=== PATIENT | male | born 1995 | race Caucasian/White ===

== ENCOUNTER 2018-10-12 15:13 | Emergency (ER) | payer MEDICAID, SELFPAY ==
[2018-10-12 15:16] VITALS: BP 136/81; PULSE 80; RESP 16; TEMP 36.9; O2SAT 99
--- NOTE | 2018-10-12 15:40 | W.ED.GENAD ---
Discharge Plan Disposition Patient Disposition: HOME Condition: Improving Discharge Details Chief Complaint: RespSymp Clinical Impression: Acute pharyngitis Primary Care Provider: Elizabeth Moore ED Provider: Andi Lopez Home Meds and New Rx's Prescriptions: No Action ondansetron 4 MG tablet,disintegrating 4 mg PO Q6H PRN PRNQty: 7 RF: 0 Discharge Instructions Instructions: Pharyngitis (ED) Additional Instructions: You will have an additional strep culture performed. Home to rest today. Small, frequent sips of fluids and/or popsicles to maintain hydration. Tylenol 650-975 mg every 6 hours, and/or ibuprofen 800 mg every 8 hours as needed for aches, pains, fever. The dexamethasone will continue to work over approximately 36 hours time. Return to the emergency department for any acute concerns Medical Decision Making 23-year-old male presents from home with days of sore throat, bilateral ear was seen with some chills chills and myalgias. He is taking liquids and solids by mouth. No recent travel. He has not had any other significant findings. Differential diagnosis includes viral versus bacterial pharyngitis. Cannot exclude an underlying generalized viral syndrome. Rapid strep screening was negative. Given the patient's obvious inflammation of the tonsillar pillars, he was given a single dose of dexamethasone for its anti-inflammatory properties. He stable and appropriate for outpatient management. I discussed with him return precautions to the ER prior to discharge. HPI General Mode of arrival: ambulatory. Date/Time Provider Initiated Documentation: 10/12/18 15:19. Limitations to Documentation: no limitations. Information obtained by: patient. History of Present Illness 23 year old M presents to the emergency department with the chief complaint of Sore throat, subjective fever and chills, body ache over 5days, described as moderate, Quality is described as aching, and is localized to the neck. Patient reports no radiation. Patient started experiencing this day(s) and it has been constant. Eating worsens symptoms . Patient notes fever/chills. Patient did receive the following treatments prior to arrival, none Related Data Home Medications Medication Instructions Recorded Confirmed ondansetron 4 mg PO Q6H PRN PRN #7 tabef 11/02/16 Previous Rx's Medication Instructions Recorded ondansetron 4 mg PO Q6H PRN PRN #7 tabef 11/02/16 Allergies Allergy/AdvReac Type Severity Reaction Status Date / Time No Known Allergies Allergy Unverified 11/02/16 11:02 General Stated Complaint: RespSymp VICK: 4 Review of Systems Review of Systems 6 systems reviewed and otherwise negative [facility] Medical History Counseling on substance use and abuse Family History Mother No problems noted. Father No problems noted. Social History Smoking/Tobacco Use Status: Never Exam Narrative Exam Narrative: GEN: awake, alert, oriented 3. Pleasant, well groomed, interactive. HEAD: Normocephalic, atraumatic ENT: Mucous membranes moist, oropharynx with erythematous tonsillar pillars, no exudate, no asymmetry, External ear exam unremarkable, tympanic membranes gonzalez bilaterally EYES: PERRL, EOMI NECK: Full ROM, no NADIYA, no menigismus CHEST/RESP: Nontender, clear to auscultation bilateral, no wheeze/rhonchi/rales CARDIOVASCULAR: RRR, no murmur, rub mariya. 2+ Rad pulse bilateral ABDOMEN: Soft, nontender, no mass. +Bowel sounds EXT: Full ROM, no edema, no rash Neuro: Grossly normal neurologic exam, conversant, interactive. Psych: Speech fluent, thoughts congruent, affect normal Course Vital Signs Temperature 36.9 C 10/12/18 15:16 Pulse 80 10/12/18 15:16 Respiratory Rate 16 10/12/18 15:16 Blood Pressure 136/81 10/12/18 15:16 Pulse Oximetry 99 10/12/18 15:16 Temperature 36.9 C 10/12/18 15:16 Temperature Source Skin 10/12/18 15:16 Pulse 80 10/12/18 15:16 Respiratory Rate 16 10/12/18 15:16 Respiratory Effort Non-Labored 10/12/18 15:22 Respiratory Depth Normal 10/12/18 15:22 Blood Pressure 136/81 10/12/18 15:16 Blood Pressure Position Sitting 10/12/18 15:16 Pulse Oximetry 99 10/12/18 15:16 Oxygen Delivery Method Room Air 10/12/18 15:16 Oxygen Flow Rate 0 10/12/18 15:16 Pain Level 6 10/12/18 15:16
--- NOTE | 2018-10-12 15:43 | ED.GENADUL_ITS ---
Discharge Plan Disposition Patient Disposition: HOME Condition: Improving Discharge Details Chief Complaint: RespSymp Clinical Impression: Acute pharyngitis Primary Care Provider: Elizabeth Moore ED Provider: Andi Lopez Home Meds and New Rx's Prescriptions: No Action ondansetron 4 MG tablet,disintegrating 4 mg PO Q6H PRN PRNQty: 7 RF: 0 Discharge Instructions Instructions: Pharyngitis (ED) Additional Instructions: You will have an additional strep culture performed. Home to rest today. Small, frequent sips of fluids and/or popsicles to maintain hydration. Tylenol 650-975 mg every 6 hours, and/or ibuprofen 800 mg every 8 hours as needed for aches, pains, fever. The dexamethasone will continue to work over approximately 36 hours time. Return to the emergency department for any acute concerns Medical Decision Making 23-year-old male presents from home with days of sore throat, bilateral ear was seen with some chills chills and myalgias. He is taking liquids and solids by mouth. No recent travel. He has not had any other significant findings. Differential diagnosis includes viral versus bacterial pharyngitis. Cannot exclude an underlying generalized viral syndrome. Rapid strep screening was negative. Given the patient's obvious inflammation of the tonsillar pillars, he was given a single dose of dexamethasone for its anti-inflammatory properties. He stable and appropriate for outpatient management. I discussed with him return precautions to the ER prior to discharge. HPI General Mode of arrival: ambulatory . Date/Time Provider Initiated Documentation: 10/12/18 15:19 . Limitations to Documentation: no limitations . Information obtained by: patient . History of Present Illness 23 year old M presents to the emergency department with the chief complaint of Sore throat, subjective fever and chills, body ache over 5days, described as moderate, Quality is described as aching, and is localized to the neck. Patient reports no radiation. Patient started experiencing this day(s) and it has been constant. Eating worsens symptoms . Patient notes fever/chills. Patient did receive the following treatments prior to arrival, none Related Data Home Medications Medication Instructions Recorded Confirmed ondansetron 4 mg PO Q6H PRN PRN #7 tabef 11/02/16 Previous Rx's Medication Instructions Recorded ondansetron 4 mg PO Q6H PRN PRN #7 tabef 11/02/16 Allergies Allergy/AdvReac Type Severity Reaction Status Date / Time No Known Allergies Allergy Unverified 11/02/16 11:02 General Stated Complaint: RespSymp VICK: 4 Review of Systems Review of Systems 6 systems reviewed and otherwise negative [facility] Medical History Counseling on substance use and abuse Family History Mother No problems noted. Father No problems noted. Social History Smoking/Tobacco Use Status: Never Exam Narrative Exam Narrative: GEN: awake, alert, oriented 3. Pleasant, well groomed, interactive. HEAD: Normocephalic, atraumatic ENT: Mucous membranes moist, oropharynx with erythematous tonsillar pillars, no exudate, no asymmetry, External ear exam unremarkable, tympanic membranes gonzalez bilaterally EYES: PERRL, EOMI NECK: Full ROM, no NADIYA, no menigismus CHEST/RESP: Nontender, clear to auscultation bilateral, no wheeze/rhonchi/rales CARDIOVASCULAR: RRR, no murmur, rub mariya. 2+ Rad pulse bilateral ABDOMEN: Soft, nontender, no mass. +Bowel sounds EXT: Full ROM, no edema, no rash Neuro: Grossly normal neurologic exam, conversant, interactive. Psych: Speech fluent, thoughts congruent, affect normal Course Vital Signs Temperature 36.9 C 10/12/18 15:16 Pulse 80 10/12/18 15:16 Respiratory Rate 16 10/12/18 15:16 Blood Pressure 136/81 10/12/18 15:16 Pulse Oximetry 99 10/12/18 15:16 Temperature 36.9 C 10/12/18 15:16 Temperature Source Skin 10/12/18 15:16 Pulse 80 10/12/18 15:16 Respiratory Rate 16 10/12/18 15:16 Respiratory Effort Non-Labored 10/12/18 15:22 Respiratory Depth Normal 10/12/18 15:22 Blood Pressure 136/81 10/12/18 15:16 Blood Pressure Position Sitting 10/12/18 15:16 Pulse Oximetry 99 10/12/18 15:16 Oxygen Delivery Method Room Air 10/12/18 15:16 Oxygen Flow Rate 0 10/12/18 15:16 Pain Level 6 10/12/18 15:16
[2018-10-12] MEDS: Dexamethasone 4 MG TAB 10 MG PO (15:47)
[2018-10-12 15:50] VITALS: BP 136/81; PULSE 80; RESP 16; TEMP 36.9; O2SAT 99
== END 2018-10-12 16:05 | disposition home or self-care (01) ==
PROVIDERS: Emergency Provider Emergency Medicine; PCP Pediatrics
DX: J02.9 Acute pharyngitis, unspecified (principal)
CPT/HCPCS: 87880; 99283; 87081; J8540

== ENCOUNTER 2018-11-04 23:12 | Emergency (ER) | payer MEDICAID, SELFPAY ==
--- NOTE | 2018-11-04 23:15 | W.ED.GENAD ---
Discharge Plan Disposition Patient Disposition: HOME Condition: Stable Discharge Details Chief Complaint: RespSymp Clinical Impression: Influenza Primary Care Provider: Elizabeth Moore ED Provider: Carlitos Moon Home Meds and New Rx's Prescriptions: New oseltamivir 75 mg capsule 75 mg PO BID 5 Days Qty: 10 RF: 0 ondansetron 4 mg tablet,disintegrating 4 mg PO TID PRN (Reason: nausea and vomiting) 5 Days Qty: 30 RF: 0 Discharge Instructions Instructions: Influenza (ED) Additional Instructions: drink fluids to stay hydrated you can take 1000mg tylenol and 600mg ibuprofen every 6 hours for pain/fever as needed if you are still symptomatic next week see your primary care provider return to the emergency department for difficulty breathing, persistent vomit, severe headaches or if you feel significantly more ill Medical Decision Making 23 yo male who denies chronic medical problems comes in with 2 days of fevers, myalgias, dry cough, sore throat. Denies ivdu, recent travel, rashes. FAmily reports he almost had a syncope earlier when walking to the bathroom but he dneeis this, denies chest pain or sob. HAs clear lungs on exam with no focal deficits, no pain over the hyoid, no restricted neck movements, no wheezing, stridor or drooling. I suspect the patient has influenza and given likelihood is high will initiate tx and defer testing. Will obtain xray to eval for inflitrate xray negative on my read. He remains stable, will d/c on tamiflu and advised f/u with pcp and return precautions given Differential Diagnosis influenza, uri, cap Imaging Data Radiologic Study: Attestation: I personally reviewed and interpreted this imaging study as follows: Imaging: X-Ray My impression: no acute findings HPI General Mode of arrival: ambulatory. Date/Time Provider Initiated Documentation: 11/04/18 23:15. Limitations to Documentation: no limitations. Information obtained by: patient. History of Present Illness 23 year old M presents to the emergency department with the chief complaint of fevers, cough, described as moderate, with intensity rated at 5. Patient reports no radiation. and it has been constant. No relieving factors improve symptom(s), No exacerbating factors reported . Patient notes other (body aches, weakness). Patient did receive the following treatments prior to arrival, none Related Data Home Medications Medication Instructions Recorded Confirmed ondansetron 4 mg PO TID PRN 5 Days #30 tab 11/04/18 oseltamivir 75 mg PO BID 5 Days #10 cap 11/04/18 Previous Rx's Medication Instructions Recorded ondansetron 4 mg PO TID PRN 5 Days #30 tab 11/04/18 oseltamivir 75 mg PO BID 5 Days #10 cap 11/04/18 Allergies Allergy/AdvReac Type Severity Reaction Status Date / Time No Known Allergies Allergy Unverified 11/04/18 23:28 General VICK: 4 Review of Systems Review of Systems All systems reviewed & are unremarkable except as noted in HPI and below Eyes Denies loss of vision ENT Denies change in voice Cardiovascular Denies chest pain Gastrointestinal Denies abdominal pain and Denies vomiting Genitourinary Denies dysuria Musculoskeletal Denies joint swelling Integumentary/Breasts Denies rash Neurologic Denies loss of vision Psychiatric Denies depression Endocrine Denies cold intolerance and Denies heat intolerance Allergic/Immunologic Denies urticaria PFSH Medical History Counseling on substance use and abuse Social History Smoking/Tobacco Use Status: Never Exam Const General: no acute distress Orientation: alert HENMT Head: normal to inspection Ears: external ears normal General nose exam: external nose normal Mouth: moist mucous membranes Eyes General: appearance normal, both eyes and all related structures Neck Neck: normal visual inspection Resp Effort & Inspection: normal respiratory effort and able to speak in complete sentences Cardio Rate: regular rate Skin General skin exam: no rashes or lesions noted Neuro General: alert and oriented x3 Extrem General: normal to inspection Psych Mental Status: mental status grossly normal
[2018-11-04 23:21] VITALS: BP 115/64; PULSE 79; RESP 16; TEMP 38.6; O2SAT 94
--- NOTE | 2018-11-04 23:31 | DI.RAD_ITS ---
SYMPTOMS/DIAGNOSIS: COUGH PA AND LATERAL CHEST: Comparison 05/17/12. The heart is normal in size. The lungs are clear. The mediastinal structures and pleura appear intact. CONCLUSION: Normal chest.
--- NOTE | 2018-11-04 23:37 | ED.GENADUL_ITS ---
Discharge Plan Disposition Patient Disposition: HOME Condition: Stable Discharge Details Chief Complaint: RespSymp Clinical Impression: Influenza Primary Care Provider: Elizabeth Moore ED Provider: Carlitos Moon Home Meds and New Rx's Prescriptions: New oseltamivir 75 mg capsule 75 mg PO BID 5 Days Qty: 10 RF: 0 ondansetron 4 mg tablet,disintegrating 4 mg PO TID PRN (Reason: nausea and vomiting) 5 Days Qty: 30 RF: 0 Discharge Instructions Instructions: Influenza (ED) Additional Instructions: drink fluids to stay hydrated you can take 1000mg tylenol and 600mg ibuprofen every 6 hours for pain/fever as needed if you are still symptomatic next week see your primary care provider return to the emergency department for difficulty breathing, persistent vomit, severe headaches or if you feel significantly more ill Medical Decision Making 23 yo male who denies chronic medical problems comes in with 2 days of fevers, myalgias, dry cough, sore throat. Denies ivdu, recent travel, rashes. FAmily reports he almost had a syncope earlier when walking to the bathroom but he dneeis this, denies chest pain or sob. HAs clear lungs on exam with no focal deficits, no pain over the hyoid, no restricted neck movements, no wheezing, stridor or drooling. I suspect the patient has influenza and given likelihood is high will initiate tx and defer testing. Will obtain xray to eval for inflitrate xray negative on my read. He remains stable, will d/c on tamiflu and advised f/u with pcp and return precautions given Differential Diagnosis influenza, uri, cap Imaging Data Radiologic Study: Attestation: I personally reviewed and interpreted this imaging study as follows: Imaging: X-Ray My impression: no acute findings HPI General Mode of arrival: ambulatory . Date/Time Provider Initiated Documentation: 11/04/18 23:15 . Limitations to Documentation: no limitations . Information obtained by: patient . History of Present Illness 23 year old M presents to the emergency department with the chief complaint of fevers, cough, described as moderate, with intensity rated at 5. Patient reports no radiation. and it has been constant. No relieving factors improve symptom(s), No exacerbating factors reported . Patient notes other (body aches, weakness). Patient did receive the following treatments prior to arrival, none Related Data Home Medications Medication Instructions Recorded Confirmed ondansetron 4 mg PO TID PRN 5 Days #30 tab 11/04/18 oseltamivir 75 mg PO BID 5 Days #10 cap 11/04/18 Previous Rx's Medication Instructions Recorded ondansetron 4 mg PO TID PRN 5 Days #30 tab 11/04/18 oseltamivir 75 mg PO BID 5 Days #10 cap 11/04/18 Allergies Allergy/AdvReac Type Severity Reaction Status Date / Time No Known Allergies Allergy Unverified 11/04/18 23:28 General VICK: 4 Review of Systems Review of Systems All systems reviewed & are unremarkable except as noted in HPI and below Eyes Denies loss of vision ENT Denies change in voice Cardiovascular Denies chest pain Gastrointestinal Denies abdominal pain and Denies vomiting Genitourinary Denies dysuria Musculoskeletal Denies joint swelling Integumentary/Breasts Denies rash Neurologic Denies loss of vision Psychiatric Denies depression Endocrine Denies cold intolerance and Denies heat intolerance Allergic/Immunologic Denies urticaria PFSH Medical History Counseling on substance use and abuse Social History Smoking/Tobacco Use Status: Never Exam Const General: no acute distress Orientation: alert HENMT Head: normal to inspection Ears: external ears normal General nose exam: external nose normal Mouth: moist mucous membranes Eyes General: appearance normal, both eyes and all related structures Neck Neck: normal visual inspection Resp Effort & Inspection: normal respiratory effort and able to speak in complete sentences Cardio Rate: regular rate Skin General skin exam: no rashes or lesions noted Neuro General: alert and oriented x3 Extrem General: normal to inspection Psych Mental Status: mental status grossly normal
[2018-11-04 23:39] VITALS: TEMP 38.6
[2018-11-04] MEDS: Acetaminophen 500 MG TAB 1000 MG PO (23:39)
[2018-11-04] MEDS: Oseltamivir 75 MG CAP PO (23:39)
--- NOTE | 2018-11-05 00:14 | DI.VRAD_ITS ---
EXAM: XR Chest, 2 Views EXAM DATE/TIME: 11/04/2018 11:33 PM CLINICAL HISTORY: 23 years old, male; Signs and symptoms; Cough TECHNIQUE: XR of the chest, 2 views. COMPARISON: CR CHEST 2 VIEWS PA,LAT 05/17/2012 8:01 PM FINDINGS: Lungs: Unremarkable. No consolidation. Pleural space: Unremarkable. No evidence of pneumothorax. Heart/Mediastinum: Unremarkable. Heart size within normal limits for technique. Bones/joints: Unremarkable. IMPRESSION: No acute findings. Dictated and Authenticated by: Carlo Ovalles MD. Ordering:TANISHA Urbina MD
== END 2018-11-05 00:03 | disposition home or self-care (01) ==
PROVIDERS: Emergency Provider Emergency Medicine; PCP Pediatrics
DX: J11.1 Influenza due to unidentified influenza virus with other respiratory manifestations (principal)
CPT/HCPCS: 99283; 71046

== ENCOUNTER 2019-02-15 16:20 | Outpatient (REF) | payer MEDICAID, SELFPAY ==
[2019-02-15 22:18] LABS: TSH 0.85 uIU/mL (0.358-3.74)
[2019-02-17 11:07] LABS: HIV-1/2 Ag & Ab Screen Negative (NEGAT)
[2019-02-17 11:19] LABS: Hepatitis C Ab w Rflx HCV PCR Negative (NEGAT)
== END 2019-02-15 16:40 ==
LOC: NCHCN 16:20
PROVIDERS: PCP Pediatrics; Visit Provider Nurse Practitioner Family
DX: F41.9 Anxiety disorder, unspecified (principal); F19.21 Other psychoactive substance dependence, in remission; Z11.4 Encounter for screening for human immunodeficiency virus [HIV]; Z11.59 Encounter for screening for other viral diseases
CPT/HCPCS: 86803; 87389; 84443

== ENCOUNTER 2019-03-29 14:55 | Outpatient (REF) | payer MEDICAID, SELFPAY ==
[2019-03-29 19:56] LABS: Abs Immature Grans 0.01 k/cumm (0.0-0.09); Absolute Basophil Count 0.03 k/cumm (0.0-0.2); Absolute Eosinophil Count 0.13 k/cumm (0.0-0.7); Absolute Neutrophil Count 7.73 k/cumm (1.2-6.7); Basophils % 0.3; Eosinophils % 1.2; HCT 43.9 % (40.0-50.0); HGB 15.5 g/dL (13.5-17.5); Immature Grans % 0.1; Lymphocytes % 18.7; Mean Corp. HGB Concentration 35.3 g/dL (32.0-36.0); Mean Corpuscular Hemoglobin 29.4 pg (27.0-33.0); Mean Corpuscular Volume 83.1 fL (80-95); Mean Platelet Volume 10.4 fL (8.0-11.0); Monocytes % 7.5; Neutrophils % 72.2; Platelet Count 229 x1000/uL (130-400); RBC 5.28 m/cumm (4.50-6.00); RBC Distribution Width 12.8 % (11.8-14.1)
== END 2019-03-29 15:15 ==
LOC: NCHCN 14:55
PROVIDERS: PCP Nurse Practitioner Family; Visit Provider Nurse Practitioner Family
DX: F41.9 Anxiety disorder, unspecified (principal); G47.00 Insomnia, unspecified
CPT/HCPCS: 85025

== ENCOUNTER 2019-10-04 15:30 | Outpatient (REF) | payer BC, SELFPAY | END 2019-10-04 15:50 | LOC: NCHCN 15:30 | PROVIDERS: PCP Nurse Practitioner Family; Visit Provider Family Medicine | DX: J02.9 Acute pharyngitis, unspecified (principal) | CPT/HCPCS: 87070 ==

== ENCOUNTER 2020-04-24 15:57 | Outpatient (REF) | payer MEDICAID, SELFPAY ==
[2020-04-24 20:29] LABS: ALT 22 U/L (16-63); AST 13 U/L (15-37); Albumin 4.3 g/dL (3.4-5.0); Alkaline Phosphatase 70 U/L (46-116); Anion Gap 11.2 mmol/L (3-11); BUN 17 mg/dL (7-18); Bilirubin, Total 0.4 mg/dL (0.2-1.0); CO2 25.8 mmol/L (21.0-32.0); CREATININE 0.87 mg/dL (0.70-1.30); Calcium 9.1 mg/dL (8.5-10.1); Chloride 105 mmol/L (98-107); Ferritin 78 ng/mL (26-388); Glucose 110 mg/dL (74-106); Potassium 4.2 mmol/L (3.5-5.1); Sodium 142 mmol/L (136-145); Total Protein 7.2 g/dL (6.4-8.2)
[2020-04-24 20:48] LABS: Bilirubin, Direct 0.12 mg/dL (0.00-0.20)
[2020-04-26 04:50] LABS: Vitamin D 25 Total 39.7 ng/ml (30-100)
== END 2020-04-24 16:17 ==
LOC: NCHCN 15:57
PROVIDERS: PCP Nurse Practitioner Family; Visit Provider Nurse Practitioner Family
DX: B36.0 Pityriasis versicolor (principal)
CPT/HCPCS: 80048; 80076; 82306; 82728

== ENCOUNTER 2020-07-24 14:24 | Emergency (ER) | payer OTHER, SELFPAY ==
[2020-07-24 14:29] VITALS: BP 127/75; PULSE 54; RESP 16; TEMP 36.7; O2SAT 100
--- NOTE | 2020-07-24 14:34 | W.ED.GENAD ---
Discharge Plan Disposition Patient Disposition: HOME Condition: Stable Discharge Details Clinical Impression: Closed head injury without loss of consciousness, Cervical strain, Post-concussion syndrome Primary Care Provider: Otilia Floyd ED Provider: Ania Gavin Home Meds and New Rx's Prescriptions: No Action fluconazole 150 mg tablet 150 mg PO Q7D RF: 0 acetaminophen [Acetaminophen Extra Strength] 500 mg Tablet 1,000 mg PO Q6H PRNRF: 0 Discharge Instructions Instructions: Cervical Strain (ED), Head Injury (ED), Post Concussion Syndrome (ED) Additional Instructions: Drink plenty of fluids and get plenty of rest. Alternate tylenol and motrin as needed and directed for pain. Alternate ice and heat to the affected area(s) several times daily for 20 minutes at a time. Follow-up with your primary care doctor in 1 week. Return to the emergency department with any worsening or new concerning symptoms. Discharge Data Discharge Physician: Ania Gavin Medical Decision Making 25-year-old male presents with headache, dizziness and nausea after head injury at work yesterday and with neck pain today. Patient sent here by [facility] and rehab for CT imaging. No evidence of head trauma. Normal ENT exam. No midline spinal tenderness. No focal deficits. Patient declined medication for pain. Will refer for CT head and cervical spine. CT head and cervical spine negative. Patient given postconcussive symptom instructions. Advised to follow up with the primary care doctor for re-evaluation. Usual and customary return precautions given prior to discharge. Medical Records Medical records reviewed: Yes I reviewed the patient's medical records. Imaging Data Radiologic Study: Radiologist's impression: CT HEAD CERVICAL SPINE WO CLINICAL HISTORY: s/p hit head on roll bar. TECHNIQUE: Imaging Protocol: Axial computed tomography images with coronal and sagittal reformatted images were created and reviewed COMPARISON: No exams were available for comparison FINDINGS: Head CT Ventricles and Extra axial spaces: Normal in size and morphology for the patient's age. Hemorrhage: None. Cerebral parenchyma: Normal. Midline shift: None. Brainstem/Cerebellum: Normal. Calvarium: Normal. Visualized Paranasal sinuses/Mastoids: Clear. Cervical Spine CT BONES: Vertebral body heights are maintained. Alignment is normal. There is no evidence of acute fracture. SOFT TISSUES: No paraspinal hematoma. The airway appears intact. No pneumothorax is seen at the lung apices. IMPRESSION: Head CT: Negative C-spine CT: Negative. HPI General Mode of arrival: ambulatory. Date/Time Provider Initiated Documentation: 07/24/20 14:34. Limitations to Documentation: no limitations. Information obtained by: patient. HPI Narrative: Pt is a 25yo M who presents to the ED w/ a c/o headache, nausea and dizziness since head injury yesterday at work. Patient states he was into a acid loader when he struck the roll bar with the top of his head. Patient states he had instant headache and subsequently has developed nausea and dizziness. Patient denies LOC or vomiting. His states his headache is 7/10 and mainly on the top of his head where he hit the roll bar. He has taken Tylenol for pain with some relief. He denies any other injuries. He states today he feels that he has developed neck pain which is on both sides and continuing to worsen. He denies any pain or weakness in his extremities. Patient was seen at [facility] today for his symptoms and referred here for further evaluation and CT imaging of his head and cervical spine. Related Data Home Medications Medication Instructions Recorded Confirmed acetaminophen [Acetaminophen Extra 1,000 mg PO Q6H PRN 07/24/20 07/24/20 Strength] fluconazole 150 mg PO Q7D 07/24/20 07/24/20 Allergies Allergy/AdvReac Type Severity Reaction Status Date / Time No Known Allergies Allergy Unverified 07/24/20 14:38 General VICK: 4 Review of Systems All systems reviewed & are unremarkable except as noted in HPI and below Constitutional Constitutional: Reports as per HPI, Denies chills, Denies fever(s) and Reports headache(s) Eyes Eyes: Denies blurry vision ENT Ears, Nose, Mouth, and Throat: Reports dizziness, Reports headache(s), Denies sore throat and Denies throat swelling Cardiovascular Cardiovascular: Denies chest pain and Denies dyspnea Respiratory Respiratory: Denies cough and Denies dyspnea Gastrointestinal Gastrointestinal: Denies abdominal pain, Denies diarrhea, Reports nausea and Denies vomiting Genitourinary Genitourinary: Denies hematuria and Denies dysuria Musculoskeletal Musculoskeletal: Denies back pain and Denies numbness Integumentary/Breasts Skin/Breast: Denies lesions and Denies rash Neurologic Neurologic: Reports dizziness, Reports headache(s), Denies localized weakness and Denies numbness Allergic/Immunologic Allergic/Immunologic: Denies throat swelling [facility] Medical History (Updated 07/24/20 @ 16:13 by Ania Gavin DO) Counseling on substance use and abuse h/o pot, daily use plan to quit 03/25 Family History Mother No problems noted. Father No problems noted. Social History Smoking/Tobacco Use Status: Never Alcohol Intake: current Alcohol Intake frequency: a few times a month Drug use: Current Sobriety Do you feel safe at home: Yes Do you feel safe in your relationship?: Yes Exam Const General: cooperative, healthy appearing and no acute distress Orientation: alert, awake and oriented x3 HENMT Head: normal to inspection, no palpable skull fracture, normocephalic and atraumatic Ears: hearing grossly normal bilaterally, external ears normal and TM's normal bilaterally General nose exam: external nose normal Face and sinus: normal facial exam Mouth: oral mucosae normal Teeth and gingiva: dentition normal Throat: posterior oropharynx normal Eyes General: appearance normal, both eyes and all related structures Eyelids: eyelids normal Pupils: PERRL EOM: EOM intact bilaterally Neck Neck: normal visual inspection Lymphatic: no lymphadenopathy noted Chest Chest: normal inspection of the chest Resp Effort & Inspection: normal respiratory effort and able to speak in complete sentences Auscultation: clear to auscultation bilaterally Cardio Rate: regular rate Rhythm: regular rhythm GI Inspection: normal to inspection Palpation: soft, not firm, no guarding, no hepatosplenomegaly, no masses and nontender Auscultation: normal bowel sounds Back/Spine/Pelvis Cervical Spine: No cervical spinal tenderness Thoracic/Lumbar Spine: No thoracic spinal tenderness and No lumbar spinal tenderness Skin General skin exam: no rashes or lesions noted Neuro General: patient alert and patient awake Cranial Nerves: CN's II-XI intact bilaterally Cognition: normal cognition Speech: speech normal Gait: normal gait Motor: muscle tone normal throughout and strength 5/5 throughout Sensory Exam: no sensory deficits noted Extrem General: normal to inspection, full ROM and capillary refill normal Psych Appearance: grossly normal Mental Status: mental status grossly normal Speech and Movement: speech and movement normal Affect: normal affect Thought Process: normal
--- NOTE | 2020-07-24 15:00 | DI.CT_ITS ---
EXAM: CT HEAD CERVICAL SPINE WO CLINICAL HISTORY: s/p hit head on roll bar. TECHNIQUE: Imaging Protocol: Axial computed tomography images with coronal and sagittal reformatted images were created and reviewed COMPARISON: No exams were available for comparison FINDINGS: Head CT Ventricles and Extra axial spaces: Normal in size and morphology for the patient's age. Hemorrhage: None. Cerebral parenchyma: Normal. Midline shift: None. Brainstem/Cerebellum: Normal. Calvarium: Normal. Visualized Paranasal sinuses/Mastoids: Clear. Cervical Spine CT BONES: Vertebral body heights are maintained. Alignment is normal. There is no evidence of acute frac ture. SOFT TISSUES: No paraspinal hematoma. The airway appears intact. No pneumothorax is seen at the lung apices. IMPRESSION: Head CT: Negative C-spine CT: Negative. Incidental RADIATION DOSE DELIVERED: LINK-TO-SR Total DLP DATA REPOSITORY: All CT scans at this facility are submitted to the National Radiology Data Registry (NRDR) Dose Index Registry (DIR) with the [employer] (ACR). RADIATION OPTIMIZATION: All CT scans at this facility use at least one of these dose optimization te chniques: automated exposure control; mA and/or kV adjustment per patient size (includes targeted exa ms where dose is matched to clinical indication); or iterative reconstruction.
[2020-07-24 16:23] VITALS: BP 120/72; PULSE 76; RESP 15; O2SAT 99
== END 2020-07-24 16:20 | disposition home or self-care (01) ==
PROVIDERS: Emergency Provider Physician Assistant; PCP Nurse Practitioner Family
DX: S16.1XXA Strain of muscle, fascia and tendon at neck level, initial encounter (principal); S09.90XA Unspecified injury of head, initial encounter; W31.89XA Contact with other specified machinery, initial encounter; F07.81 Postconcussional syndrome; Y99.0 Civilian activity done for income or pay; G44.319 Acute post-traumatic headache, not intractable
CPT/HCPCS: 99284; 70450; 72125; 99285; L0172

== ENCOUNTER 2021-08-10 09:21 | Outpatient (REF) | payer MEDICAID, SELFPAY ==
[2021-08-12 13:04] LABS: COVID-19 RT-PCR UVMMC Result Negative (Negative)
== END 2021-08-10 09:22 | disposition home or self-care (01) ==
LOC: LBN 09:21
PROVIDERS: PCP Nurse Practitioner Family; Visit Provider Nurse Practitioner Family
DX: Z20.822 Contact with and (suspected) exposure to COVID-19 (principal)
CPT/HCPCS: U0003

== ENCOUNTER 2021-08-31 16:03 | Outpatient (REF) | payer MEDICAID, SELFPAY ==
[2021-09-01 00:30] LABS: COVID-19 RT-PCR UVMMC Result Negative (Negative)
== END 2021-08-31 16:04 | disposition home or self-care (01) ==
LOC: LBN 16:03
PROVIDERS: PCP Nurse Practitioner Family; Visit Provider Physician Assistant Medical
DX: Z20.822 Contact with and (suspected) exposure to COVID-19 (principal)
CPT/HCPCS: U0003

== ENCOUNTER 2022-10-14 11:15 | Outpatient (REF) | payer MEDICAID, SELFPAY ==
[2022-10-14 19:17] LABS: HCT 45.9 % (40.0-50.0); HGB 16.2 g/dL (13.5-17.5); MCH 29.2 pg (27.0-33.0); MCHC 35.3 % (32.0-36.0); MCV 83 fL (80-95); Platelet Count 239 10^3/uL (130-400); RBC 5.54 10^6/uL (4.36-5.78); RDW 11.9 % (11.8-14.1); RDW-SD 36.4 fL; WBC 6.62 10^3/uL (4.4-10.8)
[2022-10-14 19:23] LABS: ALT 55 U/L (16-63); AST 20 U/L (15-37); Albumin 4.6 g/dL (3.4-5.0); Alkaline Phosphatase 74 U/L (46-116); Bilirubin, Direct 0.1 mg/dL (0.0-0.2); Bilirubin, Total 0.6 mg/dL (0.2-1.0); Lipase 66 U/L (73-393); Total Protein 7.8 g/dL (6.4-8.2)
[2022-10-14 19:44] LABS: Mono Screening Negative (Negative)
== END 2022-10-14 11:16 | disposition home or self-care (01) ==
LOC: NCHCN 11:15
PROVIDERS: PCP Nurse Practitioner Family; Visit Provider Nurse Practitioner Family
DX: R10.9 Unspecified abdominal pain (principal)
CPT/HCPCS: 80076; 83690; 85027; 86308

== ENCOUNTER 2022-10-27 02:04 | Outpatient (CLI) | payer MEDICAID, SELFPAY ==
--- NOTE | 2022-10-27 | DI.US_ITS ---
Exam(s) US ABDOMEN EXAM: US ABDOMEN CLINICAL HISTORY: ABD PAIN, R10.9, TENDERNESS; RECENT URI; ? SPLENOMEGALY TECHNIQUE: Ultrasound abdomen performed using standard protocol. COMPARISON: No exams were available for comparison FINDINGS: ABDOMINAL AORTA AND IVC: Visualized portions normal caliber. PANCREAS: Normal where visualized. LIVER: There is diffuse increased echogenicity of the liver consistent with fatty infiltration. The liver measures 14.6 cm long. Hepatopedal flow in the Portal Vein. GALLBLADDER:No evidence of cholelithiasis. No evidence of wall thickening. No pericholecystic fluid i dentified. BILIARY SYSTEM: Common bile duct measures < 7 mm. No intrahepatic biliary ductal dilation. GARCIA'S SIGN: Negative. KIDNEYS: Kidneys are symmetric in size. No evidence of renal calculi. No evidence of hydronephrosis. No renal mass or cyst identified. SPLEEN: Not enlarged. ASCITES: None seen. IMPRESSION: Fatty infiltration of the liver. DATA REPOSITORY:
== END 2022-10-27 02:24 ==
PROVIDERS: PCP Nurse Practitioner Family; Visit Provider Nurse Practitioner Family
DX: K76.0 Fatty (change of) liver, not elsewhere classified (principal)
CPT/HCPCS: 76700

== ENCOUNTER 2022-10-27 11:43 | Emergency (ER) | payer MEDICAID, SELFPAY ==
--- NOTE | 2022-10-27 11:45 | RT.EKG_ITS ---
APPROVED REPORT Exam: Resting ECG Reason for Exam: sob chest pain Patient Location: E HR:70 bpm ECG Measurements Heart Rate 70 AXIS VA 142 P 60 QRSd 90 QRS 85 QT 370 T 51 QTc 399 Conclusion Sinus rhythm...normal P axis, V-rate 60- 99
[2022-10-27 11:50] VITALS: BP 145/92; PULSE 71; RESP 17; TEMP 36.5; O2SAT 97
--- NOTE | 2022-10-27 12:00 | DI.CT_ITS ---
Exam(s) CT ABDOMEN PELVIS W EXAM: CT ABDOMEN PELVIS W CLINICAL HISTORY: L abd pain TECHNIQUE: Imaging Protocol: Axial computed tomography images with coronal and sagittal reformatted images were created and reviewed CONTRAST MATERIAL: Intravenous: Omnipaque 350 Contrast volume:100 mL Oral: No COMPARISON: No exams were available for comparison FINDINGS: ABDOMEN: Lung Bases: Normal where visualized. Liver: Normal density. No measurable mass. Portal, Superior Mesenteric, and Splenic Veins: Unremarkable. Gallbladder and Biliary Tract: The gallbladder is contracted but otherwise unremarkable. No biliary ductal dilatation is present. Pancreas: Normal density, no abnormal calcifications or inflammatory process. Spleen: Normal. Adrenals: No masses seen. Kidneys: Normal size, contour and axis. No radiodense stones or obstructive uropathy. No masses seen. There is a circum aortic left renal vein. Abdominal Aorta: Abdominal portion non-dilated. Bowel: No obstruction or bowel wall thickening. There are surgical clips at the base of the cecum sug gesting prior appendectomy. Peritoneal Cavity: No ascites, collection or mesenteric inflammatory response. No free air. Lymph Nodes: Within normal limits. Bones: Within normal limits for the patient's age. Soft Tissues: There is a tiny fat containing umbilical hernia. PELVIS: Bladder: Symmetric distention, no gross wall thickening. Reproductive Organs: Unremarkable as visualized. Lymph Nodes: Within normal limits. Bones: Within normal limits for the patient's age. IMPRESSION: 1. No acute abdominal or pelvic process. 2. Findings were discussed with the emergency department at 1:39 p.m. on 10/27/2022. RADIATION DOSE DELIVERED: 774.16mGy.cm Total DLP DATA REPOSITORY: All CT scans at this facility are submitted to the National Radiology Data Registry (NRDR) Dose Index Registry (DIR) with the [employer] (ACR). RADIATION OPTIMIZATION: All CT scans at this facility use at least one of these dose optimization te chniques: automated exposure control; mA and/or kV adjustment per patient size (includes targeted exa ms where dose is matched to clinical indication); or iterative reconstruction.
--- NOTE | 2022-10-27 12:06 | ED.GENADUL_ITS ---
Discharge Plan Disposition Patient Disposition: Home Condition: Improving Discharge Details Clinical Impression: Gastritis Primary Care Provider: Otilia Floyd ED Provider: Andi Lopez Home Meds and New Rx's Prescriptions: New pantoprazole [Protonix] [address] for susp in packet 40 mg PO DAILY Qty: 30 0RF Continued magnesium gluconate 500 mg tablet 500 mg PO HS acetaminophen [Acetaminophen Extra Strength] 500 mg Tablet 1,000 mg PO Q6H PRN No Action ketoconazole 2 % shampoo 1 applic topical .weekly selenium sulfide 2.3 % shampoo 1 applic topical .twice monthly Rx Instructions: massage gently into wet skin of area(s) to be cleansed; work into full lather; leave on for 10 mins ; rinse off thoroughly; pat dry naproxen 375 mg tablet 375 mg PO BID PRN fluconazole 150 mg tablet 150 mg PO Q7D Label Comments: TAKE 2 TABLETS BY MOUTH ONCE WEEKLY FOR 2 WEEKS Discharge Instructions Instructions: Gastritis (ED) Additional Instructions: Observe a bland diet for 7 to 10 days time. Avoid fatty, spicy, fried, tomato sauce based foods. Minimize caffeine and alcohol use. Avoid the use of ibuprofen/Motrin/Advil or aspirin. Please take medication once daily for the next 30 days time. As we discussed, please introduce daily stress reduction in your lifestyle. Return to the emergency room for any acute concerns. Medical Decision Making 27-year-old male presents from home. He has had approximately 10 days to weeks of left-sided abdominal pain. Is often worsened by food as well as by alcohol. He had an outpatient work-up initiated including a negative monoscreen and an ultrasound which was performed today for which the read is still pending. Patient presents in some distress. He is anxious. He is exam does reveal left- sided upper abdominal pain. Differential diagnosis includes gastritis, colitis, diverticulitis, splenic involvement. Patient IV access established, screening labs obtained, he is given PPI and antiemetic.. Laboratories noted white count 8, hematocrit 47, chemistries within normal limits as are LFTs and lipase. Urinalysis unremarkable. Given differential diagnosis, patient was referred for CT imaging which does not show any acute process. Patient is improving. Do feel given the data available at this time, that this is most consistent with an acute gastritis, and I will treat him with dietary changes, lifestyle modifications, and a course of antacid. HPI General Mode of arrival: ambulatory . Date/Time Provider Initiated Documentation: 10/27/22 11:47 . Limitations to Documentation: no limitations . Information obtained by: patient . History of Present Illness 27 year old M presents to the emergency department with the chief complaint of Left-sided abdominal pain for approximately 10 days, described as moderate, and is localized to the abdomen and left. Patient reports no radiation. Patient started experiencing this day(s) and it has been intermittent. No relieving factors improve symptom(s), No exacerbating factors reported . Patient notes loss of appetite and other (Watery diarrhea, nausea); denies chest pain, cough, diaphoresis, fever/chills, rash and shortness of breath. Patient did receive the following treatments prior to arrival, none Related Data Home Medications Medication Instructions Recorded Confirmed acetaminophen 500 mg tablet 1,000 mg PO Q6H PRN 07/24/20 07/24/20 (Acetaminophen Extra Strength) fluconazole 150 mg tablet 150 mg PO Q7D 07/24/20 07/24/20 ketoconazole 2 % shampoo 1 applic topical .weekly 08/15/20 magnesium gluconate 500 mg tablet 500 mg PO HS 08/15/20 naproxen 375 mg tablet 375 mg PO BID PRN 08/15/20 selenium sulfide 2.3 % shampoo 1 applic topical .twice monthly 08/15/20 pantoprazole 40 mg granules 40 mg PO DAILY #30 ea 10/27/22 delayed-release for susp in packet (Protonix) Previous Rx's Medication Instructions Recorded pantoprazole 40 mg granules 40 mg PO DAILY #30 ea 10/27/22 delayed-release for susp in packet (Protonix) Allergies Allergy/AdvReac Type Severity Reaction Status Date / Time No Known Allergies Allergy Unverified 10/27/22 11:53 General Stated Complaint: Abd Prob VICK: 3 Review of Systems Narrative: Diarrhea. Had negative Monospot. Nauseated but no vomiting. Denies fever. No chest pain, cough or shortness of breath. 8 systems reviewed and otherwise negative PFSH All Active Problems (Updated 10/27/22 @ 13:54 by Andi Lopez MD) Gastritis (Acute) Medical History Anxiety Concussion without loss of consciousness, initial encounter Counseling on substance use and abuse h/o pot, daily use plan to quit 03/25 Fatigue H/O head injury H/O infectious mononucleosis H/O insomnia H/O pertussis H/O: substance abuse Insomnia Neck pain, acute Nightmares Poison zay dermatitis Preventative health care Tinea versicolor Family History Mother No problems noted. Father No problems noted. Social History Smoking/Tobacco Use Status: Never Smoking risk assessment performed?: Yes Alcohol Intake: current Alcohol Intake frequency: a few times a month Drug use: Current Sobriety Substance use type: does not use Do you feel safe at home: Yes Do you feel safe in your relationship?: Yes Exam Narrative Exam Narrative: GEN: awake, alert, oriented 3. Pleasant, well groomed, interactive. HEAD: Normocephalic, atraumatic ENT: Mucous membranes moist, oropharynx unremarkable, External ear exam unremarkable EYES: PERRL, EOMI NECK: Full ROM, no NADIYA, no menigismus CHEST/RESP: Nontender, clear to auscultation bilateral, no wheeze/rhonchi/rales CARDIOVASCULAR: RRR, no murmur, rub mariya. 2+ Rad pulse bilateral ABDOMEN: Soft, tender left upper quadrant without rebound or guarding, no mass. +Bowel sounds EXT: Full ROM, no edema, no rash Neuro: Grossly normal neurologic exam, conversant, interactive. Psych: Speech fluent, thoughts congruent, affect normal Course Vital Signs Vital signs: Vital Signs Temperature 36.5 C 10/27/22 11:50 Pulse 71 10/27/22 11:50 Respiratory Rate 17 10/27/22 11:50 Blood Pressure 145/92 H 10/27/22 11:50 Pulse Oximetry 97 10/27/22 11:50 Temperature 36.5 C 10/27/22 11:50 Temperature Source Tympanic 10/27/22 11:50 Pulse 71 10/27/22 11:50 Respiratory Rate 17 10/27/22 11:50 Blood Pressure 145/92 H 10/27/22 11:50 Blood Pressure Position Sitting 10/27/22 11:50 Pulse Oximetry 97 10/27/22 11:50 Oxygen Delivery Method Room Air 10/27/22 11:50 Oxygen Flow Rate 0 10/27/22 11:50 Pain Level 6 10/27/22 11:50
[2022-10-27] MEDS: Pantoprazole 40 MG VIAL IVP (12:16)
[2022-10-27] MEDS: LORazepam 2 MG/ML VIAL 0.5 MG IVP (12:16)
[2022-10-27 12:21] LABS: Abs Immature Grans 0.03 10^3/uL (0.0-0.06); Absolute Basophil Count 0.04 10^3/uL (0.0-0.2); Absolute Eosinophil Count 0.16 10^3/uL (0.0-0.7); Absolute Lymphocyte Count 2.35 10^3/uL (1.2-3.4); Absolute Monocyte Count 0.81 10^3/uL (0.1-0.8); Basophils % 0.5; Eosinophils % 1.9; HCT 47.2 % (40.0-50.0); HGB 16.5 g/dL (13.5-17.5); Immature Grans % 0.4; Lymphocytes % 28.3; MCH 28.9 pg (27.0-33.0); MCV 83 fL (80-95); MPV 9.6 fL (8.0-11.0); Monocytes % 9.8; Neutrophils % 59.1; Platelet Count 262 10^3/uL (130-400); RBC 5.71 10^6/uL (4.36-5.78); RDW 12.1 % (11.8-14.1); RDW-SD 36.3 fL; WBC 8.29 10^3/uL (4.4-10.8)
[2022-10-27] MEDS: Normal Saline 1,000 ML 1000 ML IV (12:33)
[2022-10-27] MEDS: Normal Saline Flush 10 ML SYR IVP (12:34)
[2022-10-27 12:39] LABS: ALT 44 U/L (16-63); AST 16 U/L (15-37); Albumin 4.8 g/dL (3.4-5.0); Alkaline Phosphatase 85 U/L (46-116); Anion Gap 9.3 mmol/L (3-11); BUN 15 mg/dL (7-18); Bilirubin, Total 0.5 mg/dL (0.2-1.0); CO2 26.7 mmol/L (21.0-32.0); CREATININE 1.1 mg/dL (0.70-1.30); Calcium 9.8 mg/dL (8.5-10.1); Chloride 103 mmol/L (98-107); Estimated GFR 94.36 (mL/min/1.73m2); Glucose 92 mg/dL (74-106); Lipase 100 U/L (73-393); Potassium 3.7 mmol/L (3.5-5.1); Sodium 139 mmol/L (136-145); Total Protein 8.8 g/dL (6.4-8.2)
[2022-10-27 13:38] LABS: Bilirubin Negative (Negative); Blood Negative (Negative); Clarity Clear (Clear); Glucose Negative (Negative); Ketones Negative (Negative); Leukocyte Esterase Negative (Negative); Nitrite Negative (Negative); Urobilinogen 0.2 EU/dL (Up TO 0.2)
[2022-10-27 14:15] VITALS: BP 119/73; PULSE 68; TEMP 37; O2SAT 97
--- NOTE | 2022-10-27 17:38 | NUR.NOTE ---
Nursing Note: Jimmie Mcgregor called stating that prescription for pantoprazole was written for granules packets. Can it be changed? Spoke with Cristina Craig RN and she stated that the patient does not have any problems with swallowing, eating. Spoke with DR. Gutiérrez and relayed this information to him and he also stated that we could change it to pill form.
== END 2022-10-27 14:23 | disposition home or self-care (01) ==
PROVIDERS: Emergency Provider Emergency Medicine; PCP Nurse Practitioner Family
DX: K29.70 Gastritis, unspecified, without bleeding (principal)
CPT/HCPCS: 80053; 83690; 93005; 96361; 96374; 96375; 99285; 74177; 81003; 85025; 93010; 99284; J2060; J3490

== ENCOUNTER 2022-10-28 12:49 | Outpatient (REF) | payer MEDICAID, SELFPAY ==
[2022-10-28 16:53] LABS: Iron 116 ug/dL (65-175); Total Iron Binding Capacity 290 ug/dL (250-450); Transferrin Sat 40 % (20-55)
[2022-10-28 17:03] LABS: Calculated LDL 118 mg/dL (<100); Cholesterol 191 mg/dL (<200); Ferritin 187 ng/mL (26-388); HDL Cholesterol 44 mg/dL (40-60); TSH 1.74 uIU/mL (0.36-3.74); Triglyceride 145 mg/dL (<150)
[2022-10-29 09:41] LABS: Hepatitis B Surface Ab Negative (See Note); Hepatitis B Surface Ag Negative (Negative)
[2022-10-29 10:04] LABS: Hepatitis C Ab w Rflx HCV PCR Negative (Negative)
[2022-10-29 11:07] LABS: Hep A Total Ab w Rflx IgM Negative (Negative)
== END 2022-10-28 12:50 | disposition home or self-care (01) ==
LOC: NCHCN 12:49
PROVIDERS: PCP Nurse Practitioner Family; Visit Provider Nurse Practitioner Family
DX: R10.9 Unspecified abdominal pain (principal); K29.70 Gastritis, unspecified, without bleeding; K76.0 Fatty (change of) liver, not elsewhere classified; F41.8 Other specified anxiety disorders; E78.89 Other lipoprotein metabolism disorders
CPT/HCPCS: 80061; 86706; 86709; 86803; 87340; 82728; 83540; 83550; 84443

== ENCOUNTER 2025-09-19 15:21 | Outpatient (REF) | payer MEDICAID, SELFPAY ==
[2025-09-19 15:04] LABS: ALT 87 U/L (10-49); AST 33 U/L (<34); Albumin 4.7 g/dL (3.2-5.0); Alkaline Phosphatase 80 U/L (46-116); Anion Gap 7.8 mmol/L (3-11); BUN 18 mg/dL (9-23); Bilirubin, Total 0.5 mg/dL (0.2-1.2); CO2 27.2 mmol/L (20.0-31.0); Calcium 10.1 mg/dL (8.3-10.6); Chloride 104 mmol/L (98-107); Glucose 91 mg/dL (74-106); Potassium 5.2 mmol/L (3.5-5.1); Sodium 139 mmol/L (136-145); Total Protein 7.9 g/dL (5.7-8.2)
[2025-09-19 15:06] LABS: Hemoglobin A1C 5.2 % (<5.7)
== END 2025-09-19 15:22 | disposition home or self-care (01) ==
LOC: NCHCN 15:21
PROVIDERS: PCP Family Medicine; Visit Provider Family Medicine
DX: Z13.818 Encounter for screening for other digestive system disorders (principal); Z13.1 Encounter for screening for diabetes mellitus
CPT/HCPCS: 80053; 83036